=== PATIENT | female | born 1940 | race Caucasian/White ===

== ENCOUNTER 2019-07-28 05:54 | Inpatient (IN) ==
[2019-07-23 11:11] LABS: Basophils # 0.1 10*3/uL (0.0-0.2); Eosinophils # 0.8 10*3/uL (0.0-0.87); Eosinophils % 10.9 % (0.00-10.9); Hematocrit 40.6 VOL% (35.7-47.0); Hemoglobin 12.6 GM/DL (12.0-16.0); Immature Granulocytes % 0.6 %; Immature Granulocytes Absolute 0.04 #; Lymphocytes # 1.6 10*3/uL (1.4-4.0); Lymphocytes % 22.4 % (21.3-54.2); Mean Corpuscular Volume 101.5 FL (87-102); Mean Platelet Volume 10.1 FL (9.6-12.0); Monocytes % 6.2 % (1.7-12.7); Neutrophils % 58.9 % (38.7-73.9); Platelet Count 247 T/CUMM (130-400); Red Cell Distribution Width 13.2 % (9.3-17.3)
[2019-07-23 11:29] LABS: Calcium 8.9 MG/DL (8.5-10.1); Osmolality,Calculated 281.4 MOS/KG (273-304)
[~2019-07-28 05:54] MED LIST: LACTATED RINGERS 1,000 ML IV SCH
[2019-07-28] MEDS ORDERED: ACETAMINOPHEN 500 MG TABLET PO ONE (06:18)
[2019-07-28] MEDS ORDERED: GABAPENTIN 400 MG CAPSULE PO ONE (06:18)
[2019-07-28] MEDS ORDERED: FAMOTIDINE 20 MG/2 ML VIAL IV ONE (06:18)
[2019-07-28] MEDS ORDERED: SCOPOLAMINE 1.5 MG PATCH TRANSDERM STA (06:25)
[2019-07-28] MEDS ORDERED: ceFAZolin 2,000 MG in PREMIX 1 EACH IV ONE (06:30)
[2019-07-28] MEDS ORDERED: DEXAMETHASONE 4 MG/1 ML VIAL ONE (06:43)
[2019-07-28] MEDS ORDERED: ROPIVACAINE 0.5% 30 ML VIAL ONE (06:43)
[2019-07-28] MEDS ORDERED: MIDAZOLAM 2 MG/2 ML VIAL ONE (06:43)
[2019-07-28] MEDS ORDERED: LIDOCAINE 1% 5 ML VIAL ONE (06:43)
[2019-07-28] MEDS ORDERED: BACITRACIN OINT 0.9 GM PACK TOP ONE (08:07)
[2019-07-28] MEDS ORDERED: MORPHINE 4 MG/1 ML VIAL IV PRN ×2 (08:45)
[2019-07-28] MEDS ORDERED: KETOROLAC 15 MG/1 ML VIAL IV PRN (08:45)
[2019-07-28] MEDS ORDERED: MAGNESIUM HYDROXIDE SUSP 30 ML UDCUP PO PRN (08:45)
[2019-07-28] MEDS ORDERED: ONDANSETRON 4 MG/2 ML VIAL IV PRN (08:45)
[2019-07-28] MEDS ORDERED: SEVOFLURANE 1 UNIT/15 MINUTE INH ONE (08:54)
[2019-07-28] MEDS ORDERED: LACTATED RINGERS 1,000 ML IV ONE (08:54)
[2019-07-28] MEDS ORDERED: ONDANSETRON 4 MG/2 ML VIAL ONE (08:54)
[2019-07-28] MEDS ORDERED: LIDOCAINE 2% 5 ML VIAL ONE (08:54)
[2019-07-28] MEDS ORDERED: ePHEDrine 50 MG/ML AMP ONE (08:54)
[2019-07-28] MEDS ORDERED: propofoL 200 MG/20 ML VIAL IV ONE (08:54)
[2019-07-28] MEDS ORDERED: LACTATED RINGERS 1,000 ML IV SCH (09:00)
[2019-07-28] MEDS: MULTIVITAMIN (CENTRUM) TABLET PO SCH (10:58)
[2019-07-28] MEDS: CALCIUM (CARBONATE)/VITAMIN D 600 MG-400 UNIT TABLET PO SCH (10:58)
[2019-07-28] MEDS: CETIRIZINE 10 MG TABLET PO SCH (10:58)
[2019-07-28] MEDS: GABAPENTIN 300 MG CAPSULE PO SCH ×2 (10:58→21:08)
[2019-07-28] MEDS: PANTOPRAZOLE 40 MG TABLET PO SCH (10:58)
[2019-07-28] MEDS: OXYBUTYNIN 5 MG TABLET PO SCH (10:59)
[2019-07-28] MEDS: ceFAZolin 2,000 MG in PREMIX 1 EACH IV SCH ×2 (15:13→22:53)
[2019-07-28] MEDS: traZODone 50 MG TABLET PO SCH (21:08)
[2019-07-28] MEDS: ROSUVASTATIN 10 MG TABLET PO SCH (21:08)
[2019-07-29] MEDS: FONDAPARINUX 2.5 MG/0.5 ML SYRINGE SUBCUT SCH (03:19)
[2019-07-29 05:43] LABS: Basophils # 0.1 10*3/uL (0.0-0.2); Basophils % 0.6 % (0.0-0.8); Eosinophils # 0.4 10*3/uL (0.0-0.87); Eosinophils % 4.3 % (0.00-10.9); Hematocrit 36.8 VOL% (35.7-47.0); Hemoglobin 11.7 GM/DL (12.0-16.0); Immature Granulocytes % 0.5 %; Immature Granulocytes Absolute 0.05 #; Lymphocytes % 20.5 % (21.3-54.2); Mean Corpuscular HGB Conc 31.8 GM/DL (32-36); Mean Corpuscular Volume 99.5 FL (87-102); Mean Platelet Volume 10.6 FL (9.6-12.0); Monocytes % 8.7 % (1.7-12.7); Neutrophils % 65.4 % (38.7-73.9); Platelet Count 210 T/CUMM (130-400); Red Cell Distribution Width 13.4 % (9.3-17.3); White Blood Count 9.7 T/CUMM (4-12)
[2019-07-29] MEDS: OXYBUTYNIN 5 MG TABLET PO SCH (10:00)
[2019-07-29] MEDS: CALCIUM (CARBONATE)/VITAMIN D 600 MG-400 UNIT TABLET PO SCH (10:00)
[2019-07-29] MEDS: GABAPENTIN 300 MG CAPSULE PO SCH ×2 (10:00→20:02)
[2019-07-29] MEDS: MULTIVITAMIN (CENTRUM) TABLET PO SCH (10:00)
[2019-07-29] MEDS: MULTIVITAMIN (OCUVITE) TABLET PO SCH ×2 (10:01→20:02)
[2019-07-29] MEDS: CETIRIZINE 10 MG TABLET PO SCH (10:01)
[2019-07-29] MEDS: PANTOPRAZOLE 40 MG TABLET PO SCH (10:01)
[2019-07-29] MEDS: lisinopriL 10 MG TABLET PO SCH (10:01)
[2019-07-29] MEDS: ROSUVASTATIN 10 MG TABLET PO SCH (20:01)
[2019-07-29] MEDS: traZODone 50 MG TABLET PO SCH (20:02)
[2019-07-30] MEDS: FONDAPARINUX 2.5 MG/0.5 ML SYRINGE SUBCUT SCH (03:42)
[2019-07-30] MEDS: MULTIVITAMIN (CENTRUM) TABLET PO SCH (09:03)
[2019-07-30] MEDS: MULTIVITAMIN (OCUVITE) TABLET PO SCH (09:03)
[2019-07-30] MEDS: GABAPENTIN 300 MG CAPSULE PO SCH (09:03)
[2019-07-30] MEDS: OXYBUTYNIN 5 MG TABLET PO SCH (09:03)
[2019-07-30] MEDS: CALCIUM (CARBONATE)/VITAMIN D 600 MG-400 UNIT TABLET PO SCH (09:03)
[2019-07-30] MEDS: lisinopriL 10 MG TABLET PO SCH (09:03)
[2019-07-30] MEDS: PANTOPRAZOLE 40 MG TABLET PO SCH (09:03)
[2019-07-30] MEDS: CETIRIZINE 10 MG TABLET PO SCH (09:11)
[2019-07-30 11:43] VITALS: BP 122/70
== END 2019-07-30 15:56 | disposition home or self-care (01) | DRG 502 ==
LOC: N.OR 05:54 → N.SDSINP 05:54 → N.3E 08:46
PROVIDERS: ADMIT Orthopaedic Surgery; ATTEND Orthopaedic Surgery